=== PATIENT | male | born 1940 | race Caucasian/White ===

== ENCOUNTER → 2017-01-11 | Outpatient (CLI) | payer BC ==
[~2017-01-11] MED LIST: ACET-1138 PO; ASCA500 PO; ASPEC325 PO; CALC500C3 PO; CHOL100027 PO; CLR10 PO; DUTA0.5C PO; GLUCTAB7 PO; MULT-513 PO; NAPR1TAB9 PO; OMEG10007 PO; RXC5 PO; ZOLP5TAB6 PO
== END | disposition home or self-care (01) ==
LOC: C.LAB1850 14:11
PROVIDERS: ATTEND Internal Medicine Infectious Disease
DX: Z20.5 Contact with and (suspected) exposure to viral hepatitis (principal)

== ENCOUNTER → 2017-07-12 | Outpatient (CLI) | payer BC | END | disposition home or self-care (01) | LOC: C.LABBC 15:14 | PROVIDERS: ATTEND Urology | DX: N40.1 Benign prostatic hyperplasia with lower urinary tract symptoms (principal); R35.1 Nocturia; R03.0 Elevated blood-pressure reading, without diagnosis of hypertension ==

== ENCOUNTER → 2018-06-21 | Outpatient (CLI) | payer BC ==
[2018-06-21 09:54] LABS: HEMATOCRIT 42.4 % (42-52); HEMOGLOBIN 14.1 g/dL (14.0-18.0); MEAN CORPUSCULAR HEMOGLOBIN 29.3 pg (25-34); MEAN CORPUSCULAR HGB CONC 33.3 g/dl (32-36); MEAN PLATELET VOLUME 10.7 fL (7.4-10.4); PLATELET COUNT 200 K/uL (130-400); RED CELL DISTRIBUTION WIDTH CV 14.9 % (11.5-14.5); RED CELL DISTRIBUTION WIDTH SD 48.1 fL (36.4-46.3); WHITE BLOOD COUNT 5.43 K/uL (4.8-10.8)
[2018-06-21 10:13] LABS: ALBUMIN 3.5 gm/dl (3.4-5.0); ALKALINE PHOSPHATASE 53 U/L (45-117); ALT/SGPT 22 U/L (12-78); AST/SGOT 22 U/L (15-37); BLOOD UREA NITROGEN 16 mg/dl (7-18); CALCIUM 8.9 mg/dl (8.5-10.1); CARBON DIOXIDE 26 mmol/L (21-32); CHOLESTEROL 166 mg/dl (0-200); CREATININE 1.04 mg/dl (0.60-1.40); GLUCOSE 91 mg/dl (70-99); LDL CHOLESTEROL CALCULATED 105 mg/dl; POTASSIUM 4.1 mmol/L (3.5-5.1); SODIUM 136 mmol/L (136-145)
== END | disposition home or self-care (01) ==
LOC: C.LABFOXMH 08:51
PROVIDERS: ATTEND Internal Medicine
DX: E78.00 Pure hypercholesterolemia, unspecified (principal); M31.6 Other giant cell arteritis

== ENCOUNTER 2022-05-27 21:33 | Observation (INO) ==
--- NOTE | 2022-05-27 21:55 | Emergency Department Note ---
Impression & Plan Aspiration pneumonia, Pill esophagitis ED Provider Note NAME: CATRACHITO JIN AGE: 82 SEX: M : 1940 ARRIVES VIA: Walk-In INFORMANT: Patient, the patient's family members ED PROVIDER(S): Felix Gtz DO CHIEF COMPLAINT: Difficulty swallowing HPI: The patient is an 82-year-old male who presented to the emergency [facility] for an evaluation of difficulty swallowing. The patient states that he was taking his evening pills. He thinks he may have aspirated 1 of those pills into his airway. He feels discomfort in his neck as well as difficulty breathing. He is having voice changes and trouble with coughing. The patient is done this in the past. He denies having any lower extremity pain or swelling. He denies having any abdominal pain. He thinks he may have had a slight episode of emesis it causes. The patient is able to swallow his secretions. His family brought him directly to the emergency department. ROS: See above HPI for pertinent positives & negatives. A total of 10 systems reviewed and were otherwise negative. PAST MEDICAL HISTORY: See Below PAST SURGICAL HISTORY: See Below FAMILY HISTORY: See Below SOCIAL HISTORY: See Below HOME MEDICATIONS: See Below ALLERGIES: See Below VITALS: See Below PHYSICAL EXAMINATION: GENERAL: Patient is awake and alert. He is somewhat anxious appearing. EYES: The conjunctivae are clear. The pupils are round and reactive. EARS, NOSE, MOUTH AND THROAT: The nose is without any evidence of any deformity. Mucous membranes are moist. No foreign body was noted in the posterior oropharynx. NECK: The neck is nontender and supple. There is no stridor. RESPIRATORY: Diminished breath sounds are noted in both lung zarco. There was slight rhonchi in the left upper lung field. CARDIOVASCULAR: Regular rate and rhythm noted there no murmurs rubs or gallops normal S1 normal S2. GASTROINTESTINAL: The abdomen is soft. Abdomen is nontender. MUSCULOSKELETAL/EXTREMITIES: There is no evidence of gross deformity full range of motion is noted in the hips and shoulders. SKIN: Skin is warm and dry. Pedal edema was noted bilaterally. NEUROLOGIC: Patient is awake alert and oriented x3 MEDICAL DECISION MAKING: The patient is an 82-year-old male who presented to the emergency department for an evaluation of difficulty swallowing and possible aspiration. The patient has a history of aspiration in the past. He took 3 large pills at the same time and thinks he may have aspirated one of the pills. He was coughing in the emergency department but he was managing his secretions well. He had no stridor. I discussed the patient's laboratory and radiographic studies with him and his family members. Given the ongoing symptoms I discussed his case with the on- call [facility] hospitalist. They have agreed to evaluate the patient in the emergency department for further management and disposition. Triage Nursing notes reviewed. Prior medical records reviewed Vital Signs: reviewed and remarkable for elevated blood pressure and tachycardia. Differential diagnosis: Reactive airway disease, pneumonia, pneumothorax, COPD, CHF, infections, cardiac ischemia, pulmonary embolism, musculoskeletal, gastrointestinal, as well as other pathologies. ER treatment provided: See below Diagnostics interpreted by me: ECG: EKG was obtained in the emergency department. My interpretation is sinus tachycardia 111 bpm. There is no ectopy. Incomplete right bundle branch block pattern was appreciated. This was compared to a tracing from September 06, 2016. No significant changes were noted. Cardiac Monitoring: An order was placed for continuous cardiac monitoring. The monitor shows a rate of 10 bpm with sinus tachycardia. Laboratory studies: As stated above and show below. Imaging studies: See below Consultation(s): I discussed this case with Dr. Hodgson is on-call for the [facility] group. He will evaluate the patient in the emergency department. He did request a CT of the neck. 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 Family History Grandfather Family history of diabetes mellitus Unknown Diabetes Heart disease Social History Smoking Status: Former smoker Second Hand Exposure: No; Hx Alcohol Use: Yes Alcohol type: wine Hx Substance Use: No Preferred Language: Estonian Communication Ability: Effective End Matcher Required: No Beliefs That Will Affect Care: None Current Living Situation: Spouse Current Living Situation Comment: Feels Safe at Home: Yes Assistive Devices: Glasses Allergies Allergies Allergy/AdvReac Type Severity Reaction Status Date / Time No Known Allergies Allergy Unknown ` Verified 05/27/22 23:16 Home Meds Home Medications Medication Instructions Recorded Confirmed ascorbic acid (vitamin C) 500 mg 500 mg PO DAILY 05/27/22 05/27/22 tablet (Vitamin C) atorvastatin 10 mg tablet 10 mg PO DAILY 05/27/22 05/27/22 candesartan 4 mg tablet 4 mg PO DAILY 05/27/22 05/27/22 coQ10 (ubiquinol) 100 mg capsule 100 mg PO DAILY 05/27/22 05/27/22 cyanocobalamin (vitamin B-12) 1,000 mcg IM UD 05/27/22 05/27/22 1,000 mcg/mL injection solution doxycycline hyclate 100 mg capsule 100 mg PO BID 05/27/22 05/27/22 ferrous sulfate 325 mg (65 mg 325 mg PO DAILY 05/27/22 05/27/22 iron) tablet finasteride 5 mg tablet 5 mg PO DAILY 05/27/22 05/27/22 guaifenesin 400 mg tablet 400 mg PO TID 05/27/22 05/27/22 ipratropium bromide 42 mcg (0.06 2 spray INTRANASAL TID PRN 05/27/22 05/27/22 %) nasal spray loratadine 10 mg tablet (Claritin) 10 mg PO DAILY 05/27/22 05/27/22 metoprolol succinate 25 mg 25 mg PO DAILY 05/27/22 05/27/22 tablet,extended release 24 hr pantoprazole 40 mg tablet,delayed 40 mg PO DAILY 05/27/22 05/27/22 release sertraline 50 mg tablet 50 mg PO DAILY 05/27/22 05/27/22 zolpidem 5 mg tablet 5 mg PO HS PRN 05/27/22 05/27/22 Results & Data (ED) Vital Signs Vital Signs - 24 hr 05/27/22 21:37 05/27/22 21:52 05/27/22 22:33 Temperature 36.5 C Temperature Source Temporal Artery Scan Pulse Rate 117 H Pulse Rate [Apical] 110 H Pulse Rhythm [Apical] Regular Pulse Strength [Apical] Normal Respiratory Rate 20 24 Respiratory Effort / Characteristics Respiratory Depth Normal Blood Pressure 164/88 H Blood Pressure Mean 113 Pulse Oximetry 93 92 92 Oxygen Delivery Method Room Air Room Air Room Air Sepsis Recent Fever Within 48 Hours No Sepsis New/Unexplained Change in Mental Status N/A Sepsis Action Taken by Nursing No Action Required 05/28/22 01:33 Temperature Temperature Source Pulse Rate Pulse Rate [Apical] 114 H Pulse Rhythm [Apical] Regular Pulse Strength [Apical] Respiratory Rate 22 Respiratory Effort / Characteristics Non-Labored Respiratory Depth Normal Blood Pressure Blood Pressure Mean Pulse Oximetry 90 Oxygen Delivery Method Room Air Sepsis Recent Fever Within 48 Hours Sepsis New/Unexplained Change in Mental Status Sepsis Action Taken by Care Home Medications Current Medication List: was personally reviewed by me Laboratory Data Attestation: I reviewed the patient's lab results. Result diagrams: 05/27/22 22:10 05/27/22 22:10 Lab Results 05/27/22 05/27/22 05/27/22 Range/Units 22:10 22:10 22:10 WBC 13.46 H (4.8-10.8) K/ul RBC 4.63 (4.63-6.08) M/uL Hgb 13.0 L (14.0-18.0) g/dl Hct 40.7 (40.1-51.0) % MCV 87.9 (80.0-100.0) fL MCH 28.1 (25.0-34.0) pg MCHC 31.9 L (32.0-36.0) g/dL RDW Std Deviation 51.4 H (36.4-46.3) fL RDW Coeff of Micaela 16.0 H (11.5-14.5) % Plt Count 228 (130-400) K/uL MPV 9.9 (9.4-12.4) fL Immature Gran % (Auto) 0.4 % Neut % (Auto) 87.9 % Lymph % (Auto) 5.1 % Early % (Auto) 5.7 % Eos % (Auto) 0.7 % Baso % (Auto) 0.2 % Neut # (Auto) 11.82 H (1.4-6.5) K/uL Lymph # (Auto) 0.69 L (1.2-3.4) K/uL Early # (Auto) 0.77 (0.24-0.82) K/uL Eos # (Auto) 0.09 (0-0.50) K/uL Baso # (Auto) 0.03 (0-0.2) K/uL Immature Gran # (Auto) 0.06 H (0.00-0.02) K/uL PT 10.6 (9.0-12.0) Seconds INR 1.0 (0.9-1.1) APTT 29.5 (21.0-31.0) Seconds PTT Ratio 1.1 Sodium 134 L (136-145) mmol/L Potassium 4.2 (3.5-5.1) mmol/L Chloride 102 (98-107) mmol/L Carbon Dioxide 23 (21-32) mmol/L Anion Gap 9 (3-11) BUN 26 H (6-23) mg/dl Creatinine 1.15 (0.6-1.4) mg/dl Est Cr Clr Drug Dosing 52.7 ml/min Est GFR ( Amer) 68.8 ml/min Est GFR (Non-Af Amer) 59.4 ml/min BUN/Creatinine Ratio 22.6 H (10-20) Glucose 125 H (70-99(Fasting)) mg/dl Calcium 9.3 (8.5-10.1) mg/dl Total Bilirubin 0.6 (0.2-1.0) mg/dl AST 18 (13-39) U/L ALT 13 (7-52) U/L Alkaline Phosphatase 74 (34-104) U/L Troponin I High Sens 8.8 (0-20) pg/ml Total Protein 7.6 (6.0-8.3) gm/dl Albumin 4.2 (3.4-5.0) gm/dl Globulin 3.4 (2.5-4.0) gm/dl Albumin/Globulin Ratio 1.2 (0.9-2) Lipase 23 (11-82) U/L SARS-CoV-2, RNA, NAAT (NEGATIVE) 05/28/22 Range/Units 00:50 WBC (4.8-10.8) K/ul RBC (4.63-6.08) M/uL Hgb (14.0-18.0) g/dl Hct (40.1-51.0) % MCV (80.0-100.0) fL MCH (25.0-34.0) pg MCHC (32.0-36.0) g/dL RDW Std Deviation (36.4-46.3) fL RDW Coeff of Micaela (11.5-14.5) % Plt Count (130-400) K/uL MPV (9.4-12.4) fL Immature Gran % (Auto) % Neut % (Auto) % Lymph % (Auto) % Early % (Auto) % Eos % (Auto) % Baso % (Auto) % Neut # (Auto) (1.4-6.5) K/uL Lymph # (Auto) (1.2-3.4) K/uL Early # (Auto) (0.24-0.82) K/uL Eos # (Auto) (0-0.50) K/uL Baso # (Auto) (0-0.2) K/uL Immature Gran # (Auto) (0.00-0.02) K/uL PT (9.0-12.0) Seconds INR (0.9-1.1) APTT (21.0-31.0) Seconds PTT Ratio Sodium (136-145) mmol/L Potassium (3.5-5.1) mmol/L Chloride (98-107) mmol/L Carbon Dioxide (21-32) mmol/L Anion Gap (3-11) BUN (6-23) mg/dl Creatinine (0.6-1.4) mg/dl Est Cr Clr Drug Dosing ml/min Est GFR ( Amer) ml/min Est GFR (Non-Af Amer) ml/min BUN/Creatinine Ratio (10-20) Glucose (70-99(Fasting)) mg/dl Calcium (8.5-10.1) mg/dl Total Bilirubin (0.2-1.0) mg/dl AST (13-39) U/L ALT (7-52) U/L Alkaline Phosphatase (34-104) U/L Troponin I High Sens (0-20) pg/ml Total Protein (6.0-8.3) gm/dl Albumin (3.4-5.0) gm/dl Globulin (2.5-4.0) gm/dl Albumin/Globulin Ratio (0.9-2) Lipase (11-82) U/L SARS-CoV-2, RNA, NAAT NEGATIVE (NEGATIVE) Imaging Data Attestation: I personally reviewed and interpreted this imaging study as follows: My Impression: 1 view chest x-ray was obtained in the emergency department. My interpretation is elevation of the right hemidiaphragm. There was no definite filtrate. There is a tortuous aorta with changes postoperatively noted previously. This was compared to chest x-ray from May 20, 2022. No changes were noted. Discharge Plan Visit Data Chief Complaint: Vomiting Stated Complaint: ASPIRATION. VOMITING ED Provider: Felix Gtz Discharge Problem: Aspiration pneumonia, Pill esophagitis Patient Disposition: Being Evaluated by Hospitalist Forms Stand Alone Forms: My [facility] Prescriptions Prescriptions: No Action doxycycline hyclate 100 mg capsule 100 mg PO BID RF: 0 atorvastatin 10 mg tablet 10 mg PO DAILY RF: 0 candesartan 4 mg tablet 4 mg PO DAILY RF: 0 pantoprazole 40 mg tablet,delayed release (DR/EC) 40 mg PO DAILY RF: 0 cyanocobalamin (vitamin B-12) 1,000 mcg/mL solution 1,000 mcg IM UD RF: 0 metoprolol succinate 25 mg tablet extended release 24 hr 25 mg PO DAILY RF: 0 finasteride 5 mg tablet 5 mg PO DAILY RF: 0 zolpidem 5 mg tablet 5 mg PO HS PRN (Reason: Sleep) RF: 0 ipratropium bromide 42 mcg (0.06 %) spray,non-aerosol 2 spray INTRANASAL TID PRN (Reason: as instructed) RF: 0 sertraline 50 mg tablet 50 mg PO DAILY RF: 0 loratadine [Claritin] 10 mg Tablet 10 mg PO DAILY RF: 0 ascorbic acid (vitamin C) [Vitamin C] 500 mg Tablet 500 mg PO DAILY RF: 0 guaifenesin 400 mg Tablet 400 mg PO TID RF: 0 ferrous sulfate 325 mg (65 mg iron) Tablet 325 mg PO DAILY RF: 0 coQ10 (ubiquinol) 100 mg Capsule 100 mg PO DAILY RF: 0 Referrals Referrals: Lexii Shirley [Primary Care Provider] - Discharge Problem: Aspiration pneumonia Qualifiers: Aspiration pneumonia type: unspecified Laterality: unspecified laterality Lung location: unspecified part of lung Qualified Code(s): J69.0 - Pneumonitis due to inhalation of food and vomit
[2022-05-27 22:31] LABS: Basophils # (auto) 0.03 K/uL (0-0.2); Basophils % (auto) 0.2 %; Eosinophils # (auto) 0.09 K/uL (0-0.50); Eosinophils % (auto) 0.7 %; Hematocrit (blood only) 40.7 % (40.1-51.0); Immature Granulocytes # (auto) 0.06 K/uL (0.00-0.02); Immature Granulocytes % (auto) 0.4 %; Lymphocytes # (auto) 0.69 K/uL (1.2-3.4); Lymphocytes % (auto) 5.1 %; Mean Corpuscular Hemoglobin 28.1 pg (25.0-34.0); Mean Corpuscular Hgb Conc 31.9 g/dL (32.0-36.0); Mean Corpuscular Volume 87.9 fL (80.0-100.0); Mean Platelet Volume 9.9 fL (9.4-12.4); Monocytes # (auto) 0.77 K/uL (0.24-0.82); Monocytes % (auto) 5.7 %; Neutrophils # (auto) 11.82 K/uL (1.4-6.5); Neutrophils % (auto) 87.9 %; Platelet Count 228 K/uL (130-400); RDW Standard Deviation 51.4 fL (36.4-46.3); Red Blood Count 4.63 M/uL (4.63-6.08); White Blood Count 13.46 K/ul (4.8-10.8)
[2022-05-27 22:41] LABS: Partial Thromboplastin Ratio 1.1; Partial Thromboplastin Time 29.5 Seconds (21.0-31.0); Prothrombin Time 10.6 Seconds (9.0-12.0)
[2022-05-27 22:52] LABS: Albumin Globulin Ratio 1.2 (0.9-2); Albumin Level 4.2 gm/dl (3.4-5.0); BUN Creatinine Ratio 22.6 (10-20); Bilirubin,Total 0.6 mg/dl (0.2-1.0); Calcium 9.3 mg/dl (8.5-10.1); Creatinine Clr Calc Pharmacy 52.7 ml/min; Est GFR (African American) 68.8 ml/min; Est GFR (Non-African American) 59.4 ml/min; Globulin 3.4 gm/dl (2.5-4.0); Potassium 4.2 mmol/L (3.5-5.1); Total Protein 7.6 gm/dl (6.0-8.3); Troponin I High Sensitivity 8.8 pg/ml (0-20)
--- NOTE | 2022-05-28 04:35 | History & Physical Report ---
Date of Service May 28, 2022 Assessment & Plan (1) Pill esophagitis: Plan: 82 year old male w/ PMHx of HTN, GERD, BPH who presents w/ dysphagia after pill ingestion, CT neck w/ evidence of esophagitis. Cxr w/o focal consolidation. Stable and no issues w/ secretions. - admit to PCU; monitor clinically and on telemetry - empiric abx w/ Unasyn for aspiration pneumonitis. blood cultures pending - IV protonix 40 BID - Day team to consult ENT for likely endoscopy - Hold PO meds temporarily - Flutter valve Per statrad CT neck: "Mural thickening of upper esophagus with increased density of adjacent fat, suspicious for esophagitis. " "There is diffuse tracheal wall thickening, which is new from prior CTA and increased density of paraesophageal fat abuts the posterior aspect of the trachea." (2) Hypertension: Plan: - hold home PO regimen (3) BPH NOS w ur obs/LUTS: Plan: - hold home PO regimen (4) GERD (gastroesophageal reflux disease): Plan: - IV PPI while inpatient (5) Aspiration into respiratory tract: Plan: - see above. speech consult when able. readdress code status if chronic aspirator Plan: FEN/GI: NPO. No PO meds. ppx: heparin sq. protonix code: full, I have discussed w/ patient dispo: PCU History of Present Illness Chief Complaint: dysphagia after pill ingestion Primary Care Provider: [facility] 82 year old male w/ PMHx of HTN, GERD, BPH who presents from [facility] w/ dysphagia after ingestion of 3 pills, one of which included doxycyline at 4pm. Has hx of aspiration and aspiration pneumonia, was currently on outpatient course of doxycycline. After the pill ingestion, he had bouts of coughing fits, a few episodes of emesis and throat discomfort. He ate dinner at 5pm, but the coughing and discomfort continued so his daughter drove him to the ED. He has not had difficulty w/ secretions. Currently, his symptoms are improved from earlier. He denies fever, chills, chest pain, or shortness of breath. No confusion. ED course: stat neck CT consistent w/ esophagitis. ENT consult can be routine. Allergies Allergy/AdvReac Type Severity Reaction Status Date / Time No Known Allergies Allergy Unknown ` Verified 05/27/22 23:16 Home Medications Medication Instructions Recorded Confirmed Type ascorbic acid (vitamin C) 500 mg 500 mg PO DAILY 05/27/22 05/27/22 History tablet (Vitamin C) atorvastatin 10 mg tablet 10 mg PO DAILY 05/27/22 05/27/22 History candesartan 4 mg tablet 4 mg PO DAILY 05/27/22 05/27/22 History coQ10 (ubiquinol) 100 mg capsule 100 mg PO DAILY 05/27/22 05/27/22 History cyanocobalamin (vitamin B-12) 1,000 mcg IM UD 05/27/22 05/27/22 History 1,000 mcg/mL injection solution doxycycline hyclate 100 mg capsule 100 mg PO BID 05/27/22 05/27/22 History ferrous sulfate 325 mg (65 mg 325 mg PO DAILY 05/27/22 05/27/22 History iron) tablet finasteride 5 mg tablet 5 mg PO DAILY 05/27/22 05/27/22 History guaifenesin 400 mg tablet 400 mg PO TID 05/27/22 05/27/22 History ipratropium bromide 42 mcg (0.06 2 spray INTRANASAL TID PRN 05/27/22 05/27/22 History %) nasal spray loratadine 10 mg tablet (Claritin) 10 mg PO DAILY 05/27/22 05/27/22 History metoprolol succinate 25 mg 25 mg PO DAILY 05/27/22 05/27/22 History tablet,extended release 24 hr pantoprazole 40 mg tablet,delayed 40 mg PO DAILY 05/27/22 05/27/22 History release sertraline 50 mg tablet 50 mg PO DAILY 05/27/22 05/27/22 History zolpidem 5 mg tablet 5 mg PO HS PRN 05/27/22 05/27/22 History 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 Family History Grandfather Family history of diabetes mellitus Unknown Diabetes Heart disease Social History Smoking Status: Never smoker Second Hand Exposure: No; Hx Alcohol Use: Yes Alcohol type: wine Hx Substance Use: No Preferred Language: Moldovan Communication Ability: Effective Ivf Embryologist Required: No Beliefs That Will Affect Care: None marital status: Current Living Situation: Spouse Current Living Situation Comment: Other Information That Helps Us Care for You: No Feels Safe at Home: Yes Safety Concerns: Feels Safe At This Time Assistive Devices: Walker Review of Systems Review of Systems: All systems reviewed & are unremarkable except as noted in HPI & below Physical Exam Physical Exam: General: Grossly A&O. NAD. Cooperative. Weak appearing. Speech kip is slow, presumed to be chronic. HEENT: Atraumatic, normocephalic. EOMI Pulm: CTAB. -wheezes, -rales, -rhonchi. No respiratory distress. Cardiac: RRR, -mrg. Radial pulses intact and symmetrical. Abdominal: Nontender, nondistended, soft. Integ: Tracheostomy scar. Msk: Moving all extremities. Results & Data Results & Data ([facility]) Vital Signs (Past 12 Hours) Vital Signs Temp Pulse Pulse Resp BP BP Pulse Ox 05/28/22 02:58 102 H 24 135/86 94 05/28/22 02:06 107 H 24 94 05/28/22 01:33 114 H 22 90 05/27/22 22:33 92 05/27/22 21:52 110 H 24 92 05/27/22 21:37 36.5 C 117 H 20 164/88 H 93 Laboratory Results Cardiac Enzymes 05/27/22 Range/Units 22:10 AST 18 (13-39) U/L Troponin I High Sens 8.8 (0-20) pg/ml Coagulation 05/27/22 Range/Units 22:10 PT 10.6 (9.0-12.0) Seconds APTT 29.5 (21.0-31.0) Seconds CBC 05/27/22 Range/Units 22:10 WBC 13.46 H (4.8-10.8) K/ul RBC 4.63 (4.63-6.08) M/uL Hgb 13.0 L (14.0-18.0) g/dl Hct 40.7 (40.1-51.0) % Plt Count 228 (130-400) K/uL Neut # (Auto) 11.82 H (1.4-6.5) K/uL Lymph # (Auto) 0.69 L (1.2-3.4) K/uL Irion # (Auto) 0.77 (0.24-0.82) K/uL Eos # (Auto) 0.09 (0-0.50) K/uL Baso # (Auto) 0.03 (0-0.2) K/uL Comprehensive Metabolic Panel 05/27/22 Range/Units 22:10 Sodium 134 L (136-145) mmol/L Potassium 4.2 (3.5-5.1) mmol/L Chloride 102 (98-107) mmol/L Carbon Dioxide 23 (21-32) mmol/L BUN 26 H (6-23) mg/dl Creatinine 1.15 (0.6-1.4) mg/dl Glucose 125 H (70-99(Fasting)) mg/dl Calcium 9.3 (8.5-10.1) mg/dl AST 18 (13-39) U/L ALT 13 (7-52) U/L Alkaline Phosphatase 74 (34-104) U/L Total Protein 7.6 (6.0-8.3) gm/dl Albumin 4.2 (3.4-5.0) gm/dl Intake and Output 05/27/22 05/27/22 05/28/22 14:59 22:59 06:59 Other: Weight 82.4 kg Weight Measurement Method Chair Scale Patient Weight 05/28/22 06:59 Weight 82.4 kg Diagnostic Findings statrad preliminary findings only CT neck: Comparison: CTA neck 04/23/21 Mural thickening of upper esophagus with increased density of adjacent fat, suspicious for esophagitis. Evaluation limited by lack of intravenous contrast, artifact, and incomplete imaging of the esophagus. Consider further evaluation with esophagram or endoscopy as clinically warranted. There is diffuse trachael wall thickening, which is new from prior CTA and increased density of paraesophageal fat abuts the posterior aspect of the trachea. Prominent paratracheal lymph nodes, partially imaged. Post sternotomy. Small amount of fluid layering in right maxillary sinus. Degenerative changes of cervical spine. Arterial calcifications. Radiologist: Tony English MD cxr per my read: No focal consolidation. Right hemidipharagm is elevated. Code Status & VTE Plan Code Status full VTE Prophylaxis Plan VTE Prophylaxis will be ordered: Yes Supervising Physician Co-Signing Physician Notes Attending addendum: I have physically seen this patient, have supervised the medical residents activities, and agree with the H&P unless as otherwise noted. Assessment and Plan: Tracheitis/esophagitis- N.p.o. Unasyn 3 g IV every 6 hours Pantoprazole 40 mg IV twice daily Consult gastroenterology Remaining orders and notations as noted Resident Activity Tracking Resident Involvement: Resident Care Provided Care Provided: Adult Hospital Medicine
[2022-05-28] MEDS ORDERED: AMPICILLIN/SULBACTAM SOD 3,000 MG in 0.9 % SODIUM CHLORIDE 100 ML IV STA (06:11)
[2022-05-28] MEDS ORDERED: PANTOprazole 40 MG in SYRINGE 0 ML IV STA (06:11)
[2022-05-28] MEDS ORDERED: SODIUM CHLORIDE 0.9% 250 ML IV ONE (06:15)
--- NOTE | 2022-05-28 07:41 | CT Scan Report ---
CT soft tissue neck wo con CLINICAL HISTORY: dysphagia . Patient feels like something is caught in his throat. COMPARISON STUDY: CTA of the neck from 04/23/2021 CT DOSE: 572.06 mGy.cm TECHNIQUE: Standard limited CT of the Neck was performed without IV contrast. A dose lowering techni que was utilized adhering to the principles of ALARA. FINDINGS: Compared to the previous examination, there is prominent mucosal thickening present involvi ng the proximal aspect of the esophagus with no radiopaque foreign bodies present. The entire esophag us was not included on this study. The findings are highly suspicious for esophagitis. Follow-up endo scopy is recommended. Salivary glands: Parotid and submandibular salivary glands are within normal limits. There is asymmetric enlargement of the right lobe of the thyroid with thyroid nodule present. Lymph nodes: There are no pathologically enlarged lymph nodes. However, there is multiplicity of lymp h nodes seen along the cervical lymph node chains bilaterally, most likely reactive. There is limited evaluation due to lack of contrast., There is no evidence for soft tissue mass within the neck bilaterally. Airway: The cervical airway is widely patent. The epiglottis and aryepiglottic folds are normal bilat erally. The vocal cords are symmetric bilaterally. However, there is evidence for thickening of the u pper tracheal wall and compared to the previous CTA. Vascular structures: No gross vascular abnormalities are seen. Paranasal sinuses: The imaged paranasal sinuses are clear. Osseous structures: No acute osseous abnormalities are identified. Degenerative changes are present w ithin the cervical spine. IMPRESSION: 1. Mucosal thickening of the upper esophagus most characteristic of esophagitis. Follow-up endoscopy is recommended. 2. No radiopaque foreign bodies are identified. 3. Thickening of the upper tracheal wall is also present. 4. Reactive lymphadenopathy is present with no grossly enlarged lymph nodes on this limited noncontra st study. 5. Right thyroid nodule. ACT 112: Negative or not required by law. Electronically signed by: Casey Light M.D. 05/28/2022 7:38 AM
--- NOTE | 2022-05-28 08:18 | XRay Report ---
SINGLE VIEW CHEST CLINICAL HISTORY: Atypical chest pain FINDINGS: An AP, portable, upright chest radiograph is compared to study dated 05/20/2022 and correlat ed with chest CT dated 06/05/2021. The examination is degraded by portable technique and apical lordot ic positioning. The patient is status post midline sternotomy. The heart is enlarged noting atheroscl erotic calcification of the thoracic aorta. Ectasia of the thoracic aorta is likely similar to previo us. The pulmonary vasculature is noncongested. There is chronic elevation of the right hemidiaphragm with associated right basilar atelectasis. No airspace consolidation or large pleural effusion is willis ntified. No pneumothorax is seen. The skeletal structures are osteopenic. The bony thorax is grossly intact. IMPRESSION: Cardiomegaly with no acute cardiopulmonary abnormality. ACT 112: Negative or not required by law. Electronically signed by: Narinder Gaines M.D. 05/28/2022 8:16 AM
--- NOTE | 2022-05-28 09:31 | Hospitalist Progress Note ---
Date of Service May 28, 2022 Assessment & Plan (1) Pill esophagitis: Plan: 82 year old male w/ PMHx of HTN, GERD, BPH who presents w/ dysphagia after pill ingestion, CT neck w/ evidence of esophagitis. Cxr w/o focal consolidation. Stable and no issues w/ secretions. Pill Esophagitis, Doxycycline - Pt taking doxycycline for Lyme disease. Had PNA 1 month ago, completed tx for this and was not on doxy for pna per pt - Pt with improving pain, but residual lump/globul feeling and feels he cannot swallow past the upper part of his thought 05/28. Suctioning secretions per nursing - On admit placed on empiric abx w/ Unasyn for aspiration pneumonitis. blood cultures pending. PCT pending - CT-Neck: 1. Mucosal thickening of the upper esophagus most characteristic of esophagitis. Follow-up endoscopy is recommended. No radiopaque foreign bodies are identified. Thickening of the upper tracheal wall is also present. Reactive lymphadenopathy is present with no grossly enlarged lymph nodes on this limited noncontrast study. Right thyroid nodule. - GI consulted for Upper Endoscopy - Hold PO meds while n.p.o. Troponin normal, no transaminitis, creatinine normal at baseline and remains normal, sodium 134, potassium normal, leukocytosis to 13.46 with an LR 20,? Demargination stress response versus aspiration. COVID-negative (2) Hypertension: Plan: - Continue metoprolol 25 mg p.o. daily, candesartan 4 mg p.o. daily when able to tolerate p.o. Metoprolol tartrate 2.5 mg every 6 hours IV if persistently n.p.o. to prevent beta-josiane withdrawal - Adequately controlled at present (3) BPH NOS w ur obs/LUTS: Plan: - PO meds held while NPO - Follow for PVR/retention (4) GERD (gastroesophageal reflux disease): Plan: - IV PPI while inpatient (5) Aspiration into respiratory tract: Plan: - see above. speech consult when able after endo eval Plan: FEN/GI: NPO. No PO meds. ppx: heparin sq. protonix code: Full code dispo: PCU Admission and Anticipated Discharge Date Admission Date: May 28, 2022 Subjective Seen at bedside this morning. Pain is somewhat improved, still having difficulty swallowing and feels like things are getting stuck in his upper throat, with globus sensation. Is tolerating saliva okay, but has had suctioning from nursing this morning. Denies chest pain, chest pressure, difficulty breathing, shortness of breath. Has had intermittent cough. Notes he was on doxycycline for Lyme disease, was previously treated for pneumonia but thinks that this resolved. Denies bleeding. Has had dysphagia in the past Review of Systems Review of Systems: All systems reviewed & are unremarkable except as noted in Subjective Physical Exam Physical Exam: General: A&Ox3. NAD. Cooperative. HEENT: Atraumatic, normocephalic. Midline trach scar present. Healed. Vision and hearing grossly intact Pulm: CTAB A&P. -wheezes, -rales, -rhonchi. Symmetrical chest rise. No increase in work of breathing. No respiratory distress. Cardiac: RRR, -mrg. Radial pulses intact and symmetrical. Abdominal: Nontender, nondistended, soft. BS present. Results & Data Results & Data ([facility]) Vital Signs (Past 12 Hours) Vital Signs Temp Pulse Pulse Resp BP BP BP 05/28/22 06:14 05/28/22 06:13 88 24 128/85 05/28/22 06:00 36.7 C 87 18 154/98 H 05/28/22 04:00 90 20 05/28/22 02:58 102 H 24 135/86 05/28/22 02:06 107 H 24 05/28/22 01:33 114 H 22 05/27/22 22:33 05/27/22 21:52 110 H 24 05/27/22 21:37 36.5 C 117 H 20 164/88 H Pulse Ox Pulse Ox 05/28/22 06:14 93 05/28/22 06:13 96 05/28/22 06:00 94 05/28/22 04:00 94 05/28/22 02:58 94 05/28/22 02:06 94 05/28/22 01:33 90 05/27/22 22:33 92 05/27/22 21:52 92 05/27/22 21:37 93 PG Care Time/CCT Total # of Minutes Spent Total Time Spent with Patient: Total time spent is greater than 50% in coordination of care (as documented) at patient's floor/unit and/or counseling patient: Coding Level of Care Code 70027 Subseq Hosp Care Lvl 2 Diagnoses Pill esophagitis K20.80; T50.905A Hypertension I10 BPH NOS w ur obs/LUTS N40.1 GERD (gastroesophageal reflux disease) K21.9 Aspiration into respiratory tract T17.908A
--- NOTE | 2022-05-28 10:06 | Gastrointestinal Consultation ---
Date of Consultation May 28, 2022 Assessment & Plan (1) Dysphagia: (2) Abnormal CT scan, esophagus: -Keep NPO -Proceed with EGD today -Protonix 40 mg BID -Further recommendations pending results of testing Supervising Physician Co-Signing Physician Notes I personally evaluated the patient and agree with the findings as documented by JOSE Fox Exam: Constitutional: WD/WN, vitals as above General: EOM intact bilaterally Neck: normal visual inspection Respiratory: normal respiratory effort, lungs with some possible rales at left base Cardiovascular: RRR, no murmur, no edema Gastrointestinal: abdomennormal to inspection, nondistended, soft, nontender, no hepatosplenomegaly Musculoskeletal: no cyanosis, head normal to inspection Skin: no rashes, warm and dry Neurologic: moves all extremities Psychiatric: A and O x3, euthymic affect Proceed with EGD. risks/benefits and procedure discussed with patient, who agrees to proceed History of Present Illness Reason for Consultation: Dysphagia, pill esophagitis Attending Physician: Herminio Figueroa MD History of Present Illness Patient is an 82 yo male with PMH of GERD, HTN, & BPH who presented to the ED from [facility] after dysphagia with 3 pills. He notes that he felt as though he coughed the pills back up and aspirated them. He has a history of aspiration pneumonia. He reports he continued with coughing episodes and an episode of emesis last night. He has persistent throat discomfort. He denies issues with secretion management. He notes he used to take Nexium for GERD but current med list says Protonix [address] of soft tissue of the head and neck showed concern for esophagitis. He has seen [facility] in the past for pharyngeal dysphagia. BP & HR stable. Patient is on room air. CXR unremarkable. Allergies Allergy/AdvReac Type Severity Reaction Status Date / Time No Known Allergies Allergy Unknown ` Verified 05/27/22 23:16 Home Medications Medication Instructions Recorded Confirmed Type ascorbic acid (vitamin C) 500 mg 500 mg PO DAILY 05/27/22 05/27/22 History tablet (Vitamin C) atorvastatin 10 mg tablet 10 mg PO DAILY 05/27/22 05/27/22 History candesartan 4 mg tablet 4 mg PO DAILY 05/27/22 05/27/22 History coQ10 (ubiquinol) 100 mg capsule 100 mg PO DAILY 05/27/22 05/27/22 History cyanocobalamin (vitamin B-12) 1,000 mcg IM UD 05/27/22 05/27/22 History 1,000 mcg/mL injection solution doxycycline hyclate 100 mg capsule 100 mg PO BID 05/27/22 05/27/22 History ferrous sulfate 325 mg (65 mg 325 mg PO DAILY 05/27/22 05/27/22 History iron) tablet finasteride 5 mg tablet 5 mg PO DAILY 05/27/22 05/27/22 History guaifenesin 400 mg tablet 400 mg PO TID 05/27/22 05/27/22 History ipratropium bromide 42 mcg (0.06 2 spray INTRANASAL TID PRN 05/27/22 05/27/22 History %) nasal spray loratadine 10 mg tablet (Claritin) 10 mg PO DAILY 05/27/22 05/27/22 History metoprolol succinate 25 mg 25 mg PO DAILY 05/27/22 05/27/22 History tablet,extended release 24 hr pantoprazole 40 mg tablet,delayed 40 mg PO DAILY 05/27/22 05/27/22 History release sertraline 50 mg tablet 50 mg PO DAILY 05/27/22 05/27/22 History zolpidem 5 mg tablet 5 mg PO HS PRN 05/27/22 05/27/22 History Patient History Medical History BPH (benign prostatic hyperplasia) Cardiac murmur GERD (gastroesophageal reflux disease) Gout Hearing deficit Kidney stones Osteoarthritis Pleurisy Rheumatic fever A CHILD Temporal arteritis TOOK PREDNISONE TO TREAT (NO CURRENT PROBLEM) [facility] PHYSICAL THERAPY Surgical History History of colonoscopy History of esophagogastroduodenoscopy (EGD) History of temporal artery biopsy History of tonsillectomy History of tooth extraction History of total knee 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 Family History Grandfather Family history of diabetes mellitus Unknown Diabetes Heart disease Social History Smoking Status: Never smoker Second Hand Exposure: No; Hx Alcohol Use: Yes Alcohol type: wine Hx Substance Use: No Preferred Language: Indonesian Communication Ability: Effective Book Repairer Required: No Beliefs That Will Affect Care: None marital status: Current Living Situation: Spouse Current Living Situation Comment: Other Information That Helps Us Care for You: No Feels Safe at Home: Yes Safety Concerns: Feels Safe At This Time Assistive Devices: Walker Review of Systems Constitutional: no fever and no chills Respiratory: no cough and no dyspnea Cardiovascular: no chest pain Gastrointestinal: + heartburn and + dysphagia Physical Exam Constitutional: well developed Respiratory: normal respiratory effort and + cough upper airway noises jessica red with cough Cardiovascular: Rate/Rhythm: + tachycardic Gastrointestinal (Abdomen): Inspection/Auscultation: abdomen normal to inspection Musculoskeletal: Head/Neck/Chest: normocephalic Psychiatric: Orientation: alert and oriented x 3 Results & Data ([place]) Vital Signs (Past 12 Hours) Vital Signs Temp Pulse Pulse Resp BP BP BP 05/28/22 08:30 37.1 C 95 H 15 138/96 05/28/22 08:00 83 05/28/22 06:14 05/28/22 06:13 88 24 128/85 05/28/22 06:00 36.7 C 87 18 154/98 H 05/28/22 04:00 90 20 05/28/22 02:58 102 H 24 135/86 05/28/22 02:06 107 H 24 05/28/22 01:33 114 H 22 05/27/22 22:33 Pulse Ox Pulse Ox 05/28/22 08:30 93 05/28/22 08:00 05/28/22 06:14 93 05/28/22 06:13 96 05/28/22 06:00 94 05/28/22 04:00 94 05/28/22 02:58 94 05/28/22 02:06 94 05/28/22 01:33 90 05/27/22 22:33 92 PG Care Time/CCT Total # of Minutes Spent Total Time Spent with Patient: Total time spent is greater than 50% in coordination of care (as documented) at patient's floor/unit and/or counseling patient: Coding Level of Care Code 01604 Initial Inpt Care Lvl 3 Diagnoses Dysphagia R13.[address] scan, esophagus R93.3
--- NOTE | 2022-05-28 12:28 | Anesthesiology Consultation ---
Date of Service May 28, 2022 Assessment & Plan Chart Review Chart Review: Acceptable Risk for Surgery Consults Requested none ASA [id number] Proposed Anesthesia Anesthesia Type: MAC Risk / Benefits Reviewed With: PT / POA / Parent / Guardian, Accepts Plan and Informed Consent Obtained Additional Notes will d/w GI History Surgery Operation Date: 05/28/22 15:45 Proposed Procedures p Esophagogastroduodenoscopy Dr. Raudel Starks MD Height/Weight Height: 5 ft 8 in Weight: 81.9 kg Allergies Allergy/AdvReac Type Severity Reaction Status Date / Time No Known Allergies Allergy Unknown ` Verified 05/27/22 23:16 Medications Home Medications Medication Instructions Recorded Confirmed Last Taken ascorbic acid (vitamin C) 500 mg 500 mg PO DAILY 05/27/22 05/27/22 Unknown tablet (Vitamin C) atorvastatin 10 mg tablet 10 mg PO DAILY 05/27/22 05/27/22 Unknown candesartan 4 mg tablet 4 mg PO DAILY 05/27/22 05/27/22 Unknown coQ10 (ubiquinol) 100 mg capsule 100 mg PO DAILY 05/27/22 05/27/22 Unknown cyanocobalamin (vitamin B-12) 1,000 mcg IM UD 05/27/22 05/27/22 Unknown 1,000 mcg/mL injection solution doxycycline hyclate 100 mg capsule 100 mg PO BID 05/27/22 05/27/22 Unknown ferrous sulfate 325 mg (65 mg 325 mg PO DAILY 05/27/22 05/27/22 Unknown iron) tablet finasteride 5 mg tablet 5 mg PO DAILY 05/27/22 05/27/22 Unknown guaifenesin 400 mg tablet 400 mg PO TID 05/27/22 05/27/22 Unknown ipratropium bromide 42 mcg (0.06 2 spray INTRANASAL TID PRN 05/27/22 05/27/22 Unknown %) nasal spray loratadine 10 mg tablet (Claritin) 10 mg PO DAILY 05/27/22 05/27/22 Unknown metoprolol succinate 25 mg 25 mg PO DAILY 05/27/22 05/27/22 Unknown tablet,extended release 24 hr pantoprazole 40 mg tablet,delayed 40 mg PO DAILY 05/27/22 05/27/22 Unknown release sertraline 50 mg tablet 50 mg PO DAILY 05/27/22 05/27/22 Unknown zolpidem 5 mg tablet 5 mg PO HS PRN 05/27/22 05/27/22 Unknown NPO Date Last Intake of Fluids: 05/27/22 Time Last Intake of Fluids: 18:00 Date Last Intake of Solids: 05/27/22 Time Last Intake of Solids: 18:00 Past Medical History Medical History BPH (benign prostatic hyperplasia) Cardiac murmur GERD (gastroesophageal reflux disease) Gout Hearing deficit Kidney stones Osteoarthritis Pleurisy Rheumatic fever A CHILD Temporal arteritis TOOK PREDNISONE TO TREAT (NO CURRENT PROBLEM) [facility] PHYSICAL THERAPY from the hospitalist progress note today: (1) Pill esophagitis: Plan: 82 year old male w/ PMHx of HTN, GERD, BPH who presents w/ dysphagia after pill ingestion, CT neck w/ evidence of esophagitis. Cxr w/o focal consolidation. Stable and no issues w/ secretions. Pill Esophagitis, Doxycycline - Pt taking doxycycline for Lyme disease. Had PNA 1 month ago, completed tx for this and was not on doxy for pna per pt - Pt with improving pain, but residual lump/globul feeling and feels he cannot swallow past the upper part of his thought 05/28. Suctioning secretions per nursing - On admit placed on empiric abx w/ Unasyn for aspiration pneumonitis. blood cultures pending. PCT pending - CT-Neck:1. Mucosal thickening of the upper esophagus most characteristic of esophagitis. Follow-up endoscopy is recommended. No radiopaque foreign bodies are identified. Thickening of the upper tracheal wall is also present. Reactive lymphadenopathy is present with no grossly enlarged lymph nodes on this limited noncontrast study. Right thyroid nodule. - GI consulted for Upper Endoscopy - Hold PO meds while n.p.o. Troponin normal, no transaminitis, creatinine normal at baseline and remains normal, sodium 134, potassium normal, leukocytosis to 13.46 with an LR 20,? Demargination stress response versus aspiration. COVID-negative (2) Hypertension: Plan: - Continue metoprolol 25 mg p.o. daily, candesartan 4 mg p.o. daily when able to tolerate p.o. Metoprolol tartrate 2.5 mg every 6 hours IV if persistently n.p.o. to prevent beta-josiane withdrawal - Adequately controlled at present (3) BPH NOS w ur obs/LUTS: Plan: - PO meds held while NPO - Follow for PVR/retention (4) GERD (gastroesophageal reflux disease): Plan: - IV PPI while inpatient (5) Aspiration into respiratory tract: Plan: - see above. speech consult when able after endo eval Plan: FEN/GI: NPO. No PO meds. ppx: heparin sq. protonix code: Full code dispo: PCU Also, Temporal ateritis, s/p prednisone tx Also, Rheumatic fever - no further data available - claims no cardiac damage, was wrestling, good physical shape until a year ago - uses walker now Exercise / Class Metabolic Activity III < 4 Walking/Shop/Light housework Past Family History Family History Grandfather Family history of diabetes mellitus Unknown Diabetes Heart disease Past Surgical History Surgical History History of colonoscopy History of esophagogastroduodenoscopy (EGD) History of temporal artery biopsy History of tonsillectomy History of tooth extraction History of total knee 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 Past Anesthesia History No Hx of Anesthesia Complications and No Family Hx of Anesthesia Complications History of PONV No Hx of PONV and No Hx of Motion Sickness Social History Smoking Status: Never smoker Hx Alcohol Use: Yes Alcohol type: wine alcohol intake frequency: a few times a week Hx Substance Use: No substance use type: does not use Review of Systems ROS Unobtainable: All systems reviewed & are unremarkable except as noted in HPI & below Constitutional: no fever and no chills Eyes: as per Subjective / HPI Ear, Nose, Mouth, Throat: as per Subjective / HPI Respiratory: no cough and no dyspnea Cardiovascular: no chest pain Gastrointestinal: + heartburn and + dysphagia Genitourinary (Male): + as per Subjective / HPI Musculoskeletal: as per Subjective / HPI Integumentary: as per Subjective / HPI Neurologic: as per Subjective / HPI Psychiatric: as per Subjective / HPI Endocrine: as per Subjective / HPI Hematologic / Lymphatic: as per Subjective / HPI Allergy / Immunological: as per Subjective / HPI Physical Exam Vital Signs Last Vital Signs Temp 37.3 C 05/28/22 13:41 Pulse 97 H 07/08/22 13:41 Resp 22 05/28/22 13:41 BP 140/82 05/28/22 12:42 Pulse Ox 93 05/28/22 13:41 Constitutional WD/WN, vitals as above well developed dyspnea, coughing up phlegm, temperature slowly increasing, on ABx for aspiration pneumonia ENMT external ear and nose normal, oropharynx normal Mouth: + dental bridge and + dental restorations; no loose teeth Thyromental Distance: > or= 3.5 Finger Breadths Mallampati Class: III Throat: uvula midline Neck normal visual inspection and trachea midline Respiratory normal respiratory effort, lungs clear to auscultation normal respiratory effort, + respiratory distress, + cough and + tachypneic Auscultation: + rales and + rhonchi Cardiovascular RRR, no murmur, no edema Rate/Rhythm: + tachycardic Heart Sounds: no murmur Vessels: no JVD Gastrointestinal (Abdomen) Inspection/Auscultation: abdomen normal to inspection Musculoskeletal Head/Neck/Chest: normocephalic Extremities: extremities normal to inspection Skin no rashes, warm and dry Neurologic moves all extremities and awake; no focal motor deficits Cranial Nerves: tongue midline and symmetric palate elevation Psychiatric A+Ox3, euthymic affect Orientation: alert and oriented x 3 Apperance: appropriately dressed and appropriately groomed Eye Contact: good eye contact Speech: normal rate/rhythm/volume of speech Affect: euthymic affect Judgement: good judgement Testing Laboratory Results 05/27/22 22:10 05/27/22 22:10 PT 10.6 Seconds (9.0-12.0) 05/27/22 22:10 INR 1.0 (0.9-1.1) 05/27/22 22:10 APTT 29.5 Seconds (21.0-31.0) 05/27/22 22:10
[2022-05-28] MEDS ORDERED: METOPROLOL TARTRATE 1 MG/ML VIAL IV ONE (12:37)
[2022-05-28] MEDS ORDERED: AMPICILLIN/SULBACTAM SOD 3,000 MG in 0.9 % SODIUM CHLORIDE 100 ML IV SCH (13:00)
[2022-05-28] MEDS ORDERED: PROPOFOL IV EMULSION 10 MG/ML 20 ML VIAL IV ONE (14:41)
[2022-05-28] MEDS ORDERED: KETAMINE 50 MG/5 ML SYRINGE ONE (14:41)
[2022-05-28] MEDS ORDERED: LIDOCAINE 2% MPF LOCAL 5 ML VIAL INFIL ONE (14:41)
[2022-05-28] MEDS ORDERED: BENZOCAINE/TETRACAIN/BUTAM 50 APPLN/5 GM CAN EXT ONE (14:41)
--- NOTE | 2022-05-28 15:02 | GI REPORT ---
Patient Name: Robbie Mendiola Procedure Date: 05/28/2022 2:27 PM Date of : 1940 Admit Type: Inpatient Age: 82 Gender: Male Attending MD: Dany Starks MD Procedure: Upper GI endoscopy Providers: Dany Starks MD Referring MD: Fern Shultz Indications: Dysphagia, Abnormal CT of the GI tract Medicines: Monitored Anesthesia Care Complications: No immediate complications. Estimated blood loss: None. Estimated Blood Loss: Estimated blood loss: none. Procedure: Pre-Anesthesia Assessment: - Prior Anticoagulants: The patient has taken no previous anticoagulant or antiplatelet agents. - ASA Grade Assessment: III - A patient with severe systemic disease. After obtaining informed consent, the endoscope was passed under direct vision. Throughout the procedure, the patient's blood pressure, pulse, and oxygen saturations were monitored continuously. The Endoscope was introduced through the mouth, and advanced to the second part of duodenum. The upper GI endoscopy was accomplished without difficulty. The patient tolerated the procedure well. Findings: The distal esophagus was mildly tortuous. Biopsies were taken with a cold forceps for histology. Estimated blood loss: none. No evidence of hiatal hernia, obstruction, or narrowing in the esophagus, nor any esophagitis. Diffuse mildly erythematous mucosa without bleeding was found in the stomach. The duodenal bulb and second portion of the duodenum were normal. Impression: - Tortuous esophagus. - Erythematous mucosa in the stomach. - Normal duodenal bulb and second portion of the duodenum. Recommendation: - Return patient to ICU for ongoing care. - NPO today. obtain speech and swallow evaluation to determine suitable diet. - Await pathology results. Dany Starks MD 05/28/2022 3:01:40 PM This report has been signed electronically. Note Initiated On: 05/28/2022 2:27 PM Number of Addenda: 0 I attest to the content of the Intraoperative Record and orders documented therein, exceptions below {[id number]}
--- NOTE | 2022-05-28 16:13 | Electrocardiogram Report ---
Test Reason : Blood Pressure : / mmHG Vent. Rate : 111 BPM Atrial Rate : 111 BPM P-R Int : 194 ms QRS Dur : 090 ms QT Int : 324 ms P-R-T Axes : 022 -27 014 degrees QTc Int : 440 ms Sinus tachycardia Incomplete right bundle branch block When compared with ECG of 06-SEP-2016 14:07, Vent. rate has increased BY 48 BPM Incomplete right bundle branch block is now Present Confirmed by Yuri Bateman ([id number]) on 05/28/2022 4:12:44 PM Referred By: Lexii Shirley Confirmed By:Yuri Bateman
[2022-05-28] MEDS: cefTRIAXone SODIUM 2,000 MG in DEXTROSE 5% 50 ML IV SCH (16:25)
[2022-05-28] MEDS: METOPROLOL TARTRATE 1 MG/ML VIAL IV SCH (18:15)
--- NOTE | 2022-05-28 18:35 | Anesthesiology Progress Note ---
Date of Service May 28, 2022 Anesthesia Post Procedure Vital Signs Vital Signs: Temp Pulse Pulse Resp BP BP BP 05/28/22 18:15 115 H 158/91 H 05/28/22 16:00 97 H 05/28/22 15:30 96 H 22 128/74 05/28/22 15:15 96 H 22 156/128 H 05/28/22 15:05 95 H 20 147/95 H 05/28/22 13:41 37.3 C 97 H 22 05/28/22 12:42 104 H 140/82 05/28/22 08:30 37.1 C 95 H 15 138/96 05/28/22 08:00 83 05/28/22 06:14 05/28/22 06:13 88 24 128/85 05/28/22 06:00 36.7 C 87 18 154/98 H 05/28/22 04:00 90 20 05/28/22 02:58 102 H 24 135/86 05/28/22 02:06 107 H 24 05/28/22 01:33 114 H 22 05/27/22 22:33 05/27/22 21:52 110 H 24 05/27/22 21:37 36.5 C 117 H 20 164/88 H Pulse Ox Pulse Ox 05/28/22 18:15 05/28/22 16:00 05/28/22 15:30 92 05/28/22 15:15 95 05/28/22 15:05 96 05/28/22 13:41 93 05/28/22 12:42 05/28/22 08:30 93 05/28/22 08:00 05/28/22 06:14 93 05/28/22 06:13 96 05/28/22 06:00 94 05/28/22 04:00 94 05/28/22 02:58 94 05/28/22 02:06 94 05/28/22 01:33 90 05/27/22 22:33 92 05/27/22 21:52 92 05/27/22 21:37 93 Transfer of Care Handoff Completed per policy Notes Mental Status: alert / awake / arousable Patient Amnestic to Procedure: Yes Nausea / Vomiting: adequately controlled Pain: adequately controlled Airway Patency, RR, SpO2: stable & adequate BP & HR: stable & adequate Hydration State: stable & adequate Anesthetic Complications: no major complications apparent
[2022-05-28] MEDS: HEPARIN SOD 5,000 UNIT/0.5 ML VIAL SQ SCH (20:27)
[2022-05-28] MEDS: PANTOprazole 40 MG in SYRINGE 0 ML IV SCH (20:27)
[2022-05-29] MEDS: METOPROLOL TARTRATE 1 MG/ML VIAL IV SCH ×3 (00:20→12:31)
--- NOTE | 2022-05-29 04:22 | Billing Data ---
Date of Service May 29, 2022 Coding Level of Care Code 26196 Initial Inpt Care Lvl 3
[2022-05-29 07:15] LABS: Basophils # (auto) 0.03 K/uL (0-0.2); Basophils % (auto) 0.3 %; Eosinophils # (auto) 0.08 K/uL (0-0.50); Eosinophils % (auto) 0.8 %; Hematocrit (blood only) 36.9 % (40.1-51.0); Immature Granulocytes # (auto) 0.04 K/uL (0.00-0.02); Immature Granulocytes % (auto) 0.4 %; Lymphocytes # (auto) 0.79 K/uL (1.2-3.4); Mean Corpuscular Hemoglobin 28.3 pg (25.0-34.0); Mean Corpuscular Hgb Conc 32.5 g/dL (32.0-36.0); Mean Platelet Volume 10.5 fL (9.4-12.4); Monocytes # (auto) 0.81 K/uL (0.24-0.82); Monocytes % (auto) 8.2 %; Neutrophils % (auto) 82.3 %; Platelet Count 204 K/uL (130-400); RDW Coefficient of Variation 15.9 % (11.5-14.5); Red Blood Count 4.24 M/uL (4.63-6.08); White Blood Count 9.85 K/ul (4.8-10.8)
[2022-05-29 07:50] LABS: BUN Creatinine Ratio 24.7 (10-20); Calcium 8.9 mg/dl (8.5-10.1); Est GFR (African American) 92.9 ml/min; Est GFR (Non-African American) 80.2 ml/min; Potassium 3.6 mmol/L (3.5-5.1)
[2022-05-29] MEDS: PANTOprazole 40 MG in SYRINGE 0 ML IV SCH (07:54)
[2022-05-29] MEDS ORDERED: COUGH DROP (SUGAR FREE) LOZ 24 LOZ/1 BOX BUCCAL ONE (07:57)
[2022-05-29] MEDS: cefTRIAXone SODIUM 2,000 MG in DEXTROSE 5% 50 ML IV SCH (09:55)
[2022-05-29] MEDS: HEPARIN SOD 5,000 UNIT/0.5 ML VIAL SQ SCH (10:03)
--- NOTE | 2022-05-29 12:38 | Discharge Summary ---
Date of Service May 29, 2022 Admission HPI Per Admitting Provider 82 year old male w/ PMHx of HTN, GERD, BPH who presents from [facility] w/ dysphagia after ingestion of 3 pills, one of which included doxycyline at 4pm. Has hx of aspiration and aspiration pneumonia, was currently on outpatient course of doxycycline. After the pill ingestion, he had bouts of coughing fits, a few episodes of emesis and throat discomfort. He ate dinner at 5pm, but the coughing and discomfort continued so his daughter drove him to the ED. He has not had difficulty w/ secretions. Currently, his symptoms are improved from earlier. He denies fever, chills, chest pain, or shortness of breath. No confusion. ED course: stat neck CT consistent w/ esophagitis. ENT consult can be routine. Principal Diagnosis Pill esophagitis Discharge Exam General: A&Ox3. NAD. Cooperative. Skin: Midline sternal scar, trach scar well healed. HEENT: Atraumatic, normocephalic. Pulm: CTAB A&P. -wheezes, -rales, -rhonchi. Symmetrical chest rise. No increase in work of breathing. No respiratory distress. +cough intermittently Cardiac: RRR, -mrg. Radial pulses intact and symmetrical. Abdominal: Nontender, nondistended, soft. BS present. Discharge Data Allergies Allergy/AdvReac Type Severity Reaction Status Date / Time No Known Allergies Allergy Unknown ` Verified 05/27/22 23:16 Consultations 05/28/22 02:00 ED Decision to Admit Stat 05/28/22 09:28 Consult Gastroenterology Routine Procedures Performed Operation Date: 05/28/22 15:45 Actual Procedures p EGD Biopsy Cytology - Dany Starks MD Ordered Studies 05/28/22 00:40 CT soft tissue neck wo con Urgent Hospital Course (1) Pill esophagitis: 82 year old male w/ PMHx of HTN, GERD, BPH who presents w/ dysphagia after pill ingestion, CT neck w/ evidence of esophagitis. Cxr w/o focal consolidation. Stable and no issues w/ secretions. To do as outpatient: 1. Continue heart healthy diet, no discussed with speech therapy thin liquids was not recommended due to tortuous esophagus 2. Continue cefuroxime twice daily 14-day course for Lyme treatment, Western blot confirmation still pending at time of discharge. 3. Continue flagyl 500mg TID x5 days for adjunct aspiration PNA tx 4. Repeat CBC/BMP/Procal in 1 week 5. PCP followup in 1 week Pill Esophagitis Treated empirically with Unasyn for aspiration pneumonitis, blood cultures no growth at time of discharge Chest x-ray was clear CT of the neck did not show any retained radiopaque bodies. Upper esophagus showed findings suspicious for esophagitis, concerning for tracheal wall thickening/inflammation Follow-up EGD did not show any evidence of retained pill, did show torturous esophagus, no esophagitis. Discussed bronchoscopy with pulm, bronchoscopy documented as inflammation already occurred and pill likely to have been dissolved even if aspirated, patient clinically improving Speech eval completed. Recommended heart healthy diet, due to tortuous esophagus was not recommended to thicken liquids to nectar thick as this could actually worsen aspiration. Discussed that patient is a chronic micro aspirator, discussed oral hygiene precautions as most important to prevent aspiration pneumonia -On discharge was converted to cefuroxime for his Lyme coverage and adjunct Flagyl was added for aspiration pneumonia coverage as noted Lyme serology was pending at time of discharge, patient had an outpatient screening positive (2) Hypertension: - hold home PO regimen (3) BPH NOS w ur obs/LUTS: - hold home PO regimen (4) GERD (gastroesophageal reflux disease): - IV PPI while inpatient (5) Aspiration into respiratory tract: - see above FEN/GI: NPO. No PO meds. ppx: heparin sq. protonix code: full, I have discussed w/ patient dispo: PCU Total Time Total Time Spent Total Time Spent (In Minutes): Time spend day of discharge 70 minutes including direct patient care, documentation, review of labs and images, and coordination of care. Discharge Plan Discharge Items Patient Disposition: Transfer [facility] Reason For Visit: PILL ESOPHAGITIS Discharge Diagnosis: Pill esophagitis Activity: Per Instructions section Non-emergency contact: Primary Care Provider Call non-emergency contact if: you have any medication questions, your symptoms worsen and your pain is not controlled Follow-up/Referrals: Lexii Shirley [Primary Care Provider] - Diet: Heart Healthy Addtl Attending Provider Instructions: You were seen in the hospital for throat pain swallowing difficulty, this was likely due to to pill esophagitis (a condition in which a pill, in your case most likely doxycycline, get stuck in the esophagus and causes irritation). A CT of your neck/airway showed upper esophageal thickening concerning for esophagitis, no radiopaque foreign bodies/retained pills were appreciated. Upper tracheal wall thickening/irritation was appreciated. A right thyroid nodule was appreciated, you may follow-up with your outpatient provider for reassessment of this as an outpatient. You underwent upper endoscopy (which showed a torturous distal esophagus, no evidence of h ernia/obstruction/narrowing/ongoing esophagitis. Mild inflammation of the stomach without bleeding was found. Speech therapy saw you following your EGD. It was recommended that you be placed back on a heart healthy diet. You are at risk for further aspiration, oral hygiene as discussed will be important to prevent aspiration pneumonia. Thickening liquids was not recommended as this could actually increase your risk of aspiration, and was not recommended based on your tortuous esophagus. Your doxycycline has been switched to another antibiotic, cefuroxime. Please take cefuroxime 500 mg by mouth twice daily for 14 days for Lyme disease. Your Lyme serology final testing was still pending at time of discharge, if this is negative it is reasonable to stop taking this antibiotic prior to the 14 days being complete. This antibiotic offers against many, pneumonias as well. Aspirating does not necessarily lead to pneumonia, the biggest factors to reducing aspiration pneumonia risk is continuing oral hygiene as noted. You had an elevated blood marker suggesting potential for pneumonia, and have been placed on 5 days of metronidazole 500mg three times daily to cover for potential aspiration pneumonia. You were ambulating with a walker at your normal level of strength at time of discharge. You have been discharged back to independent living with [facility]. A followup appointment is being scheduled for you with your PCP. You should be seen seen within 1 week. You should receive a call to confirm this appointment. If you do not receive a call within 48 hours to confirm this appointment, or need to change this appointment, please call the provider's office at the number above. If you develop any new or worsening symptoms including fever, chills, sweats, chest pain, chest pressure, difficulty breathing, uncontrolled nausea/vomiting, rash, wheezing, passing out or nearly passing out, bleeding, black/bloody bowel movements, or other new or concerning symptoms please call your primary care physician, or call 911 for re-evaluation in the emergency department if you are very concerned. Pending Studies at Discharge: No Stand-Alone Forms: My [facility] Skilled Items Patient informed of condition?: Yes DNR: No Discharge Level of Care: Skilled Communicable Disease: No Discharge Prognosis: Stable Lines: None Urinary Catheter: No Medications and DC Order Prescriptions: New cefuroxime axetil 500 mg tablet 500 mg PO BID 14 Days Qty: 28 RF: 0 metronidazole 500 mg tablet 500 mg PO TID 5 Days Qty: 15 RF: 0 Continued atorvastatin 10 mg tablet 10 mg PO DAILY RF: 0 candesartan 4 mg tablet 4 mg PO DAILY RF: 0 pantoprazole 40 mg tablet,delayed release (DR/EC) 40 mg PO DAILY RF: 0 cyanocobalamin (vitamin B-12) 1,000 mcg/mL solution 1,000 mcg IM UD RF: 0 metoprolol succinate 25 mg tablet extended release 24 hr 25 mg PO DAILY RF: 0 finasteride 5 mg tablet 5 mg PO DAILY RF: 0 zolpidem 5 mg tablet 5 mg PO HS PRN (Reason: Sleep) RF: 0 ipratropium bromide 42 mcg (0.06 %) spray,non-aerosol 2 spray INTRANASAL TID PRN (Reason: as instructed) RF: 0 sertraline 50 mg tablet 50 mg PO DAILY RF: 0 loratadine [Claritin] 10 mg Tablet 10 mg PO DAILY RF: 0 ascorbic acid (vitamin C) [Vitamin C] 500 mg Tablet 500 mg PO DAILY RF: 0 guaifenesin 400 mg Tablet 400 mg PO TID RF: 0 ferrous sulfate 325 mg (65 mg iron) Tablet 325 mg PO DAILY RF: 0 coQ10 (ubiquinol) 100 mg Capsule 100 mg PO DAILY RF: 0 Discontinued doxycycline hyclate 100 mg capsule 100 mg PO BID RF: 0 Discharge Orders: Discharge Order (Routine); Ordered 05/29/22 Ordered By: Herminio Figueroa Admission Data Admit Date/Time: 05/28/22 05:00 Attending Provider: Herminio Figueroa Admit Provider: Flaco Moe Primary Care Provider: Lexii Shirley Other Providers: Reggie Hodgson ; Dany Starks Other Interventions: Discharge Summary Assessment (RN) Last Done: 05/29/22 13:25 Coding Level of Care Code D/C DAY MANAGEMENT >30 MINS Diagnoses Pill esophagitis K20.80; T50.905A Hypertension I10 BPH NOS w ur obs/LUTS N40.1 GERD (gastroesophageal reflux disease) K21.9 Aspiration into respiratory tract T17.908A
[2022-05-29] MEDS ORDERED: METOPROLOL SUCC 25MG EXT REL TAB PO SCH (12:45)
--- NOTE | 2022-05-29 16:36 | XRay Report ---
XR chest 1V portable CLINICAL HISTORY: Suspicion of aspiration. Evaluate cardiopulmonary status. COMPARISON STUDY: 05/27/2022 TECHNIQUE: 1 view of the chest FINDINGS: Single frontal view of the chest demonstrates the heart size to again be enlarged. There is again asy mmetric elevation of the right hemidiaphragm. The lungs are clear of alveolar opacities. There is no evidence for pleural effusion. There is no evidence for vascular congestion. There is no acute osseou s pathology. IMPRESSION: 1. No acute cardiopulmonary disease. No evidence for aspiration pneumonitis. ACT 112: Negative or not required by law. Electronically signed by: Casey Light M.D. 05/29/2022 4:35 PM
[2022-05-30] MEDS ORDERED: ATORVASTATIN 10 MG TAB PO SCH (09:00)
== END 2022-05-29 15:27 ==
LOC: ED 21:33 → 1E 05-28 05:00 → SUATTDRO 05-28 05:00 → INTOOBSV 05-28 05:00 → 1E 05-28 06:13 → 2S 05-28 21:54